=== PATIENT | female | born 1980 | race Caucasian/White ===

== ENCOUNTER 2021-08-08 19:02 | Emergency (ER) | payer OTHER ==
[2021-08-08] MEDS ORDERED: LORazepam 2 MG/ML VIAL ONE ×2 (20:22→22:49)
[2021-08-08 20:30] LABS: Absolute Lymphocytes (CBC) 1.5 K/uL (0.7-4.9); Basophils % 0.5 % (0-1.3); Hematocrit 41.4 % (36.0-45.0); Lymphocytes % 11.5 % (15.3-44.8); MPV 8.3 fL (7.6-11.3); RBC Red Blood Cell Count 4.37 M/uL (3.86-4.86)
[2021-08-08 20:39] LABS: Protime INR 1.03
[2021-08-08 20:53] LABS: ALT/SGPT 18 U/L (12-78); AST/SGOT 16 U/L (15-37); Albumin 4.5 g/dL (3.4-5.0); Alkaline Phosphatase 70 U/L (45-117); BUN Blood Urea Nitrogen 9 mg/dL (7-18); Bicarbonate 28 mmol/L (21-32); Bilirubin Direct 0.2 mg/dL (0-0.2); Bilirubin Total 0.9 mg/dL (0.2-1.0); Glucose Level 94 mg/dL (74-106); Potassium 3.9 mmol/L (3.5-5.1); Protein, Total 8.4 g/dL (6.4-8.2); Sodium Level 140 mmol/L (136-145)
[2021-08-08 21:46] LABS: Lithium 1.2 mmol/L (0.6-1.2)
[2021-08-08 21:57] LABS: Salicylates Level < 1.7 mg/dL (2.8-20)
[2021-08-08 22:35] LABS: Urine Blood Trace-intact (Negative); Urine Glucose Negative (Negative); Urine Protein Negative (Negative)
--- NOTE | 2021-08-08 22:45 | EDPHYS ---
Physician Documentation [facility] Name: Alma An Age: 41 yrs Sex: Female : 1980 Arrival Date: 08/08/2021 Time: 19:25 Bed 26 Private MD: ED Physician Junior Benavides HPI: 08/08 20:19 This 41 yrs old Female presents to ER via Ambulatory with complaints of varnisher Problem, bipolar. 20:19 The patient presents to the emergency department with Manic. Onset: The rn symptoms/episode began/occurred 1 week(s) ago. Associated signs and symptoms: Pertinent negatives: abdominal pain, chest pain, chills, delusions, fever, hallucinations, headache, homicidal ideation, night sweats, paranoia, shortness of breath, suicide ideation, vomiting. Severity of symptoms: At their worst the symptoms were moderate in the emergency department the symptoms are unchanged. The patient has experienced similar episodes in the past. The patient has been recently seen by a physician:. Family member states for the last week or so patient has been manic. Is taking medications as prescribed. Was seen last week by psychiatry and Wellbutrin added. Patient has been on Wellbutrin before and tolerated well. [place] dose was actually decreased. Family member states not sleeping, pressured speech, agitation. Patient denies any medical acute problems. Denies fever/cough/vomiting/diarrhea/rashes. No difficulty walking. No vision changes. No focal neurological problems.. BOAT HOP: 19:30 LMP 08/02/2021 vg1 Historical: - Allergies: 19:28 PENICILLINS; vg1 19:28 Aspirin; vg1 - Home Meds: 19:28 quetiapine oral [Active]; [place] Carbonate Oral [Active]; lamotrigine oral [Active]; vg1 19:30 Arbutin [Active]; vg1 - PMHx: 19:28 Bipolar disorder; vg1 - PSHx: 19:28 None; vg1 - Immunization history:: Adult Immunizations up to date, Client reports receiving the 2nd dose of the Covid vaccine. - Social history:: Smoking status: Patient denies any tobacco usage or history of. - Family history:: not pertinent. - Hospitalizations: : No recent hospitalization is reported. ROS: 20:19 Constitutional: Negative for fever, chills, and weight loss, Eyes: Negative for injury, rn pain, redness, and discharge, Neck: Negative for injury, pain, and swelling, Cardiovascular: Negative for chest pain, palpitations, and edema, Respiratory: Negative for shortness of breath, cough, wheezing, and pleuritic chest pain, Abdomen/GI: Negative for abdominal pain, nausea, vomiting, diarrhea, and constipation, Back: Negative for injury and pain, MS/Extremity: Negative for injury and deformity, Skin: Negative for injury, rash, and discoloration, Neuro: Negative for headache, weakness, numbness, tingling, and seizure, Psych: Negative for suicide ideation, homicidal ideation, and hallucinations. Exam: 20:19 Constitutional: This is a well developed, well nourished patient who is awake, alert, rn and in no acute distress. Sitting in bed with legs crossed. Head/Face: Normocephalic, atraumatic. Eyes: Periorbital areas with no swelling, redness, or edema. ENT: Mucous membranes moist. Neck: Trachea midline, no thyromegaly or masses palpated, and no cervical lymphadenopathy. Supple, full range of motion without nuchal rigidity, or vertebral point tenderness. No Meningismus. Cardiovascular: Regular rate and rhythm. No pulse deficits. Respiratory: No increased work of breathing, no retractions or nasal flaring. Abdomen/GI: Soft, non-tender Skin: Warm, dry, no rashes MS/ Extremity: Pulses equal, no cyanosis. Neurovascular intact. Full, normal range of motion. Equal circumference. Neuro: Awake and alert, GCS 15, oriented to person, place, time, and situation. Cranial nerves II-XII grossly intact. Motor strength 5/5 in all extremities. Sensory grossly intact. Cerebellar exam normal. Normal gait. Mild bilateral upper extremity tremor. No inducible clonus. No hyperreflexia. Psych: Awake, alert. Pressured speech but easy to understand and easily redirectable. 20:57 ECG was reviewed by the Attending Physician. rn Vital Signs: 19:26 BP 136 / 88; Pulse 92; Resp 16; Temp 98.4; Pulse Ox 98% ; Weight 58.97 kg; Height 5 ft. vg1 1 in. (154.94 cm); Pain 0/10; 19:42 BP 127 / 82; Pulse 96; Resp 18; Pulse Ox 96% ; Pain 0/10; ad1 20:15 BP 118 / 70; Pulse 90; Resp 16; Pulse Ox 100% ; Pain 0/10; ad1 21:15 BP 94 / 76; Pulse 93; Resp 14; Pulse Ox 100% ; Pain 0/10; ad1 22:00 BP 121 / 80; Pulse 87; Resp 16; Pulse Ox 100% ; Pain 0/10; ad1 22:45 BP 119 / 83; Pulse 91; Resp 16; Pulse Ox 100% ; Pain 0/10; ad1 19:26 Body Mass Index 24.56 (58.97 kg, 154.94 cm) vg1 MDM: 19:35 Patient medically screened. rn 22:41 Differential diagnosis: Bipolar disorder, manic episode, dehydration, change in um rn dosages. Data reviewed: vital signs, nurses notes, lab test result(s), EKG, and as a result, I will discharge patient. Data interpreted: media monitor: rate is 93 beats/min, rhythm is normal sinus rhythm, regular, with no ectopy, Interpretation: normal rate, normal rhythm, Pulse oximetry: on room air is 100 %. Interpretation: normal. Counseling: I had a detailed discussion with the patient and/or guardian regarding: the historical points, exam findings, and any diagnostic results supporting the discharge/admit diagnosis, lab results, the need for outpatient follow up, to return to the emergency department if symptoms worsen or persist or if there are any questions or concerns that arise at home. Response to treatment: the patient's symptoms have mildly improved after treatment, and as a result, I will discharge patient. Special discussion: Based on the history and exam findings, there is no indication for further emergent testing or inpatient evaluation. I discussed with the patient/guardian the need to see the psychiatrist for further evaluation of the symptoms. ED course: Patient without any acute findings in blood work or urine. Worsening symptoms of bipolar and manic episode possibly due to decreased lithium dose recently or could be adverse effect of recent Wellbutrin addition. No signs of serotonin syndrome at this time. Stable vital signs. Offered patient and family member transfer for psychiatric evaluation to inpatient facility which they declined. Will give Ativan to help her rest tonight and perhaps better sleep will improve her symptoms. Patient is alert and oriented and follows all commands here, no signs of agitation here, no suicidal or homicidal ideations, no hallucinations. Will discharge home and family member plans on calling psychiatrist in the morning or first thing on Wednesday. Family member states has dealt with this for a long time and is not new was just a little more agitated than normal today.. 22:45 ED course: [place] level within range.. rn 08/08 19:46 Order name: Acetaminophen; Complete Time: 20:57 rn 08/08 19:46 Order name: Basic Metabolic Panel; Complete Time: 20:57 rn 08/08 19:46 Order name: CBC with Diff; Complete Time: 20:57 rn 08/08 19:46 Order name: ETOH Level; Complete Time: 22:31 rn 08/08 19:46 Order name: Hepatic Function; Complete Time: 20:57 rn 08/08 19:46 Order name: PT-INR; Complete Time: 20:57 rn 08/08 19:46 Order name: Ptt, Activated; Complete Time: 20:57 rn 08/08 19:46 Order name: Salicylate; Complete Time: 22:31 rn 08/08 19:46 Order name: Urine Drug Screen; Complete Time: 22:55 rn 08/08 19:46 Order name: [place]; Complete Time: 22:31 rn 08/08 22:35 Order name: Urine --Ancillary (enter results); Complete Time: 22:45 tt3 08/08 22:35 Order name: Urine Dipstick-Ancillary; Complete Time: 22:40 EDMS 08/08 19:46 Order name: EKG; Complete Time: 19:47 rn 08/08 19:46 Order name: EKG - Nurse/Tech; Complete Time: 21:04 rn 08/08 19:46 Order name: IV Saline Lock; Complete Time: 20:20 rn 08/08 19:46 Order name: Labs collected and sent; Complete Time: 20:20 rn 08/08 19:46 Order name: Urine Dipstick-Ancillary (obtain specimen); Complete Time: 22:35 rn 08/08 19:46 Order name: Urine Test (obtain specimen); Complete Time: 22:35 rn EC:57 Rate is 89 beats/min. Rhythm is regular. QRS [place] is Normal. [place] interval is normal. QRS rn interval is normal. QT interval is normal. No Q waves. T waves are Normal. No ST changes noted. Clinical impression: Normal ECG. Interpreted by me. Reviewed by me. Administered Medications: 21:03 Drug: Ativan (LORazepam) 1 mg Route: IVP; Site: right hand; fu 21:33 Follow up: Response: No adverse reaction fu 23:26 Follow up: Response: No adverse reaction ad1 22:54 Drug: Ativan (LORazepam) 1 mg Route: IVP; Site: right antecubital; ad1 23:27 Follow up: Response: No adverse reaction ad1 Disposition Summary: 08/08/21 22:44 Discharge Ordered Location: Home rn Problem: new rn Symptoms: have improved rn Condition: Stable rn Diagnosis - Bipolar disorder, current episode manic without psychotic features, moderate rn Followup: rn - With: Private Physician - When: As needed - Reason: Recheck today's complaints, Re-evaluation by your physician Discharge Instructions: - Discharge Summary Sheet rn - Barbie rn - Managing Bipolar Disorder rn Forms: - Medication Reconciliation Form rn - Thank You Letter rn - Antibiotic rn faculty - Prescription Opioid Use rn Signatures: Dispatcher [employer] EDMS Junior Benavides MD MD rn DelToro, Anna RN RN ad1 Glen Hauser, RN Asha Laurent, RN RN vg1 Corrections: (The following items were deleted from the chart) 20:24 20:19 Constitutional: This is a well developed, well nourished patient who is awake, rn alert, and in no acute distress. Sitting in bed with legs crossed. Head/Face: Normocephalic, atraumatic. Eyes: Periorbital areas with no swelling, redness, or edema. ENT: Mucous membranes moist. Neck: Trachea midline, no thyromegaly or masses palpated, and no cervical lymphadenopathy. Supple, full range of motion without nuchal rigidity, or vertebral point tenderness. No Meningismus. Cardiovascular: Regular rate and rhythm. No pulse deficits. Respiratory: No increased work of breathing, no retractions or nasal flaring. Abdomen/GI: Soft, non-tender Skin: Warm, dry, no rashes MS/ Extremity: Pulses equal, no cyanosis. Neurovascular intact. Full, normal range of motion. Equal circumference. Neuro: Awake and alert, GCS 15, oriented to person, place, time, and situation. Cranial nerves II-XII grossly intact. Motor strength 5/5 in all extremities. Sensory grossly intact. Cerebellar exam normal. Normal gait. Mild bilateral upper extremity tremor. No inducible clonus. No hyperreflexia. rn
--- NOTE | 2021-08-08 22:45 | ER ---
Nurse's Notes [facility] Name: Alma An Age: 41 yrs Sex: Female : 1980 Arrival Date: 08/08/2021 Time: 19:25 Bed 26 Private MD: Diagnosis: Bipolar disorder, current episode manic without psychotic features, moderate Presentation: 08/08 19:26 Chief complaint: Parent and/or Guardian states: 'My daughter has been manic since vg1 Wednesday08/04/21 and today her speech has become slurred. She's having trouble getting her words out.' Pt has not been able to sleep for about 3 nights. Pt denies SI. Coronavirus screen: Vaccine status: Patient reports receiving the 2nd dose of the covid vaccine. Client denies travel out of the [place] in the last 14 days. Ebola Screen: Patient negative for fever greater than or equal to 101.5 degrees Fahrenheit, and additional compatible Ebola Virus Disease symptoms. Initial Sepsis Screen: Does the patient meet any 2 criteria? No. Patient's initial sepsis screen is negative. Does the patient have a suspected source of infection? No. Patient's initial sepsis screen is negative. Risk Assessment: Do you want to hurt yourself or someone else? Patient reports no desire to harm self or others. Onset of symptoms was August 04, 2021. 19:26 Method Of Arrival: Ambulatory vg1 19:26 Acuity: MERVIN 3 vg1 Triage Assessment: 19:30 General: Appears in no apparent distress. uncomfortable, Behavior is cooperative, vg1 anxious. Pain: Denies pain. 19:30 Neuro: Level of Consciousness is awake, alert, obeys commands, Oriented to person, vg1 place, time, situation, Special Needs Tutor are equal bilaterally Moves all extremities. Gait is steady, Speech is normal, Facial symmetry appears normal. CREEL CLERK: 19:30 LMP 08/02/2021 vg1 Historical: - Allergies: 19:28 PENICILLINS; vg1 19:28 Aspirin; vg1 - Home Meds: 19:28 quetiapine oral [Active]; [place] Carbonate Oral [Active]; lamotrigine oral [Active]; vg1 19:30 Arbutin [Active]; vg1 - PMHx: 19:28 Bipolar disorder; vg1 - PSHx: 19:28 None; vg1 - Immunization history:: Adult Immunizations up to date, Client reports receiving the 2nd dose of the Covid vaccine. - Social history:: Smoking status: Patient denies any tobacco usage or history of. - Family history:: not pertinent. - Hospitalizations: : No recent hospitalization is reported. Screenin:30 Abuse screen: Denies threats or abuse. Nutritional screening: No deficits noted. ad1 Tuberculosis screening: No symptoms or risk factors identified. Fall Risk IV access (20 points). Assessment: 21:37 General: Appears in no apparent distress. Behavior is cooperative, anxious, Reports ad1 manic since Wednesday. Mom reports slurred speech started today. Tremors noted to R hand/arm. Pain: Denies pain. 21:37 Neuro: Level of Consciousness is awake, alert, obeys commands, Oriented to person, ad1 place, time, situation, Appropriate for age Special Needs Tutor are equal bilaterally Moves all extremities. Gait is steady, Speech with difficulty getting words out, minimal slurring noted.. Facial symmetry appears normal. Cardiovascular: Heart tones S1 S2 Rhythm is sinus rhythm. Respiratory: No deficits noted. 22:00 Reassessment: Patient appears in no apparent distress at this time. No changes from ad1 previously documented assessment. Patient and/or family updated on plan of care and expected duration. Pain level reassessed. Patient is alert, oriented x 3, equal unlabored respirations, skin warm/dry/pink. 23:00 Reassessment: Patient appears in no apparent distress at this time. No changes from ad1 previously documented assessment. Patient and/or family updated on plan of care and expected duration. Pain level reassessed. Patient is alert, oriented x 3, equal unlabored respirations, skin warm/dry/pink. Psych: 23:31 Hasty Suicide Severity Screening: In the past month, have you wished you were ad1 or wished you could go to sleep and not wake up? Patient responds "No." "In the past month, have you actually had any thoughts of killing yourself?" Patient responds "no." "In your lifetime, have you ever done anything, started to do anything, or prepared to do anything to end your life?" Patient responds "no.". Subjective: Patient's mood is Delusions are. Objective: Patient is cooperative, Speech is rambling, Affect is. Interventions: Urine collected and sent for urine drug test. Safety Checks: Pt denies substance abuse. 23:32 Commitment:. ad1 Vital Signs: 19:26 BP 136 / 88; Pulse 92; Resp 16; Temp 98.4; Pulse Ox 98% ; Weight 58.97 kg; Height 5 ft. vg1 1 in. (154.94 cm); Pain 0/10; 19:42 BP 127 / 82; Pulse 96; Resp 18; Pulse Ox 96% ; Pain 0/10; ad1 20:15 BP 118 / 70; Pulse 90; Resp 16; Pulse Ox 100% ; Pain 0/10; ad1 21:15 BP 94 / 76; Pulse 93; Resp 14; Pulse Ox 100% ; Pain 0/10; ad1 22:00 BP 121 / 80; Pulse 87; Resp 16; Pulse Ox 100% ; Pain 0/10; ad1 22:45 BP 119 / 83; Pulse 91; Resp 16; Pulse Ox 100% ; Pain 0/10; ad1 19:26 Body Mass Index 24.56 (58.97 kg, 154.94 cm) vg1 ED Course: 19:25 Patient arrived in ED. vg1 19:28 Triage completed. vg1 19:30 Arm band placed on. vg1 19:35 Junior Benavides MD is Attending Physician. rn 20:20 Salicylate Sent. ad1 20:20 Ptt, Activated Sent. ad1 20:20 PT-INR Sent. ad1 20:20 Hepatic Function Sent. ad1 20:20 ETOH Level Sent. ad1 20:20 CBC with Diff Sent. ad1 20:20 Basic Metabolic Panel Sent. ad1 20:20 Acetaminophen Sent. ad1 20:20 [place] Sent. ad1 23:30 No provider procedures requiring assistance completed. IV discontinued, intact, ad1 bleeding controlled, No redness/swelling at site. Pressure dressing applied. 23:31 Patient has correct armband on for positive identification. Allergy band placed. Fall ad1 risk band placed. Bed in low position. Call light in reach. Administered Medications: 21:03 Drug: Ativan (LORazepam) 1 mg Route: IVP; Site: right hand; fu 21:33 Follow up: Response: No adverse reaction fu 23:26 Follow up: Response: No adverse reaction ad1 22:54 Drug: Ativan (LORazepam) 1 mg Route: IVP; Site: right antecubital; ad1 23:27 Follow up: Response: No adverse reaction ad1 Outcome: 22:44 Discharge ordered by . rn 23:29 Discharged to home ad1 23:29 Condition: stable 23:29 Condition: stable 23:29 Discharge instructions given to patient, family, Instructed on discharge instructions, follow up and referral plans. Demonstrated understanding of instructions, follow-up care. 23:32 Patient left the ED. ad1 Signatures: Junior Benavides MD MD rn DelToro, Anna, RN RN ad1 Glen Hauser, RN Asha Laurent, RN RN vg1 Corrections: (The following items were deleted from the chart) 23:25 23:00 BP 119 / 83; Pulse 91bpm; Resp 16bpm; Pulse Ox 100%; Pain 0/10; ad1 ad1
[2021-08-08 22:53] LABS: Barbiturates NEGATIVE (NEGATIVE); Benzodiazepines NEGATIVE (NEGATIVE); Cocaine NEGATIVE (NEGATIVE); METHAMPHETAM NEGATIVE (NEGATIVE); Methadone NEGATIVE (NEGATIVE); Opiates NEGATIVE (NEGATIVE); Phencyclidine NEGATIVE (NEGATIVE); THC Cannibis NEGATIVE (NEGATIVE)
[2021-08-08 23:47] VITALS: TEMP 98.4
[2021-08-08 23:50] VITALS: O2SAT 100
[2021-08-08 23:55] VITALS: BP 119/83
--- NOTE | 2021-08-11 18:32 | EKG ---
Test Date: 2021-08-08 Test Time: 20:28:32 Interlocking Tower Operator: TRENA MEASUREMENT RESULTS: Intervals: Rate: 89 [place]: 154 QRSD: 86 QT: 338 QTc: 411 [place]: P: 65 [place]: 154 QRS: 58 T: 38 INTERPRETIVE STATEMENTS: Normal sinus rhythm Normal ECG Compared to ECG 08/08/2021 20:27:39 No significant changes Electronically Signed On 08-11-21 18:24:23 SALES SUPPORT ADVISOR by Stefano Aceves
--- NOTE | 2021-08-11 18:32 | EKG ---
Test Date: 2021-08-08 Test Time: 20:27:39 Telecommunications Field Technician: TRENA MEASUREMENT RESULTS: Intervals: Rate: 95 TN: 146 QRSD: 82 QT: 364 QTc: 457 [place]: P: 72 TN: 146 QRS: 58 T: 51 INTERPRETIVE STATEMENTS: Normal sinus rhythm Normal ECG No previous ECG available for comparison Electronically Signed On 08-11-21 18:24:23 FASHION COORDINATOR by Stefano Aceves
--- OUTSIDE RECORDS SUMMARY | 2021-08-16 13:32 | XMS REPORT | Continuity of Care Document ---
:1980 Author Organization [facility] t Address [address] [place] [address] Care Team Providers Name Role Phone Shey Perez MD Primary Care Physician EADE Attending Clinician Unavailable Rebecca Perez MD Attending Clinician Lab, - Db Attending Clinician Unavailable Doctor Unassigned, Name Attending Clinician Unavailable Payers Payer Name Policy Type Policy Number Effective Date Expiration Date S ource Problems Condition Condition Condition Status Onset Resolution Last Treating Co mments Source Name Details Category Date Date Treatment Clinician Date Bipolar II Bipolar II Disease Active 2020-10 U nivers disorder disorder 0-25 ity of 00:00: Medical Branch Insomnia, Insomnia, Disease Active 2020-10 Uni vers unspecifie unspecifie 0-25 it y of d type d type 00:00: Medical Branch Social Social Disease Active 2020-10 Univers anxiety anxiety 0-25 ity of disorder disorder 00:00: Medical Branch Physical Physical Disease Active Unive rs therapy therapy 8-06 [place] [facility] x[place] Branch Cervical Cervical Disease Active Unive rs muscle muscle 7-29 ity of pain pain 00:00: Medical Branch Allergic Allergic Disease Active Overview: Un lex rhinitis rhinitis 4-12 Formattin ity of 00:00: g of this note Medical might be Branch different from the original. ICD10 Diagnosis Term Scheme Technician Utility Allergies, Adverse Reactions, Alerts Allergy Allergy Status Severity Reaction(s) Onset Inactive Treating Comm ents Source Name Type Date Date Clinician Aspirin Propensi Active Hives Univers ty to 412 ity of adverse 00:00: [place] reaction 00 Medical s Branch Penicill Propensi Active Unknown - Uni vers ins ty to See comments 01-13 ity of adverse 00:00: [place] reaction 00 Medical s Branch Family History Family Member Diagnosis Comments Start Date Stop Date Source Natural father Thyroid [facility] Natural mother Thyroid [facility] Paternal [facility] Social History Social Habit Start Date Stop Date Quantity Comments Source Exposure to Not sure [facility] SARS-CoV-2 [facility] (event) Branch Alcohol intake 2021-08-11 2021-08-11 Current [facility] 00:00:00 00:00:00 non-drinker of [facility] alcohol [place] (finding) Tobacco use and 2013-01-13 2013-01-13 Never used Universit y of exposure 00:00:00 00:00:00 [facility] Sex [birth year] Universit y of 00:00:00 00:00:00 [facility] Smoking Status Start Date Stop Date Source Never smoker [facility] Medications Ordered Filled Start Stop Current Ordering Indication Dosage Frequency Signature Comments Components Source Medication Medication Date Date Medication? Clinician (SIG) Name Name QUEtiapine 2020-10 Yes [id number] 100mg Take 1 Univers 100 mg 1-08 tablet by ity of tablet 00:00: mouth at [place] 00 bedtime. Medical Branch Lamotrigine 2020-10 Yes [id number] 200mg Take 1 Univers 200 mg 0-25 tablet by ity of tablet 00:00: mouth 2 [place] 00 (two) Medical times Branch daily. lithium 2020-10- Yes [id number] 600mg Take 2 Un lex carbonate 0-25 04-24 tablets by ity of CR 300 mg 00:00: 04:59 [place] 2 [place] SR tablet 00 :00 (two) Medical times Branch daily for 180 days. QUEtiapine 2020-10- No [id number] 25mg Take 1 Univers 25 mg 0-25 -08 tablet by ity of tablet 00:00: 00:00 mouth at [place] 00 :00 bedtime as Medical needed for Branch Insomnia for up to 90 days. buPROPion 2020-10- No [id number] 100mg Take 1 Univers SR 100 mg 0-25 11-08 tablet by ity of SR tablet 00:00: 00:00 mouth [place] 00 :00 every Medical morning. Branch traZODone Yes 50mg 50 mg. Univer s 50 mg 5-04 ity of tablet 00:00: [place] Medical [facility] traZODone 0 Yes 50mg 50 mg. Univer s 50 mg 5-04 ity of tablet 00:00: [place] [facility] traZODone 2020- No 50mg 50 mg. Unive rs 50 mg 5-04 10-25 ity of tablet 00:00: 00:00 [place] 00 : Medical Branch FLUoxetine Yes 10mg Take 10 mg U nivers 10 mg 4-11 by mouth ity of tablet 00:00: daily. Medical Branch FLUoxetine Yes 10mg Take 10 mg U nivers 10 mg 4-11 by mouth ity of tablet 00:00: daily. [place] [facility] FLUoxetine Yes 10mg Take 10 mg U nivers 10 mg 4-11 by mouth ity of tablet 00:00: daily. [place] Medical Branch ondansetron 2019- Yes [id number] 4mg Take 1 Univers 4 mg 0-02 tablet by ity of disintegrat 00:00: mouth [place] ing tablet 00 every 8 Medica l (eight) Branch hours as needed for Nausea and Vomiting (N/V). ondansetron 2019- Yes Nausea and 4mg Take 1 Univers 4 mg 0-02 vomiting, tablet by ity o f disintegrat 00:00: intractabil mouth [place] ing tablet 00 ity of every 8 Medi xin vomiting (eight) Branch not hours as specified, needed for unspecified Nausea and vomiting Vomiting type (N/V). ondansetron 2020-1 Yes Nausea and 4mg Take 1 Univers 4 mg 0-02 vomiting, tablet by ity o f disintegrat 00:00: intractabil mouth [place] ing tablet 00 ity of every 8 Medi xin vomiting (eight) Branch not hours as specified, needed for unspecified Nausea and vomiting Vomiting type (N/V). lithium 2020-0 Yes 450mg Take 450 Unive rs carbonate 9-23 mg by ity of CR 450 mg 00:00: mouth. 1 q [place] SR tablet 00 AM and 2 q Medi xin hs Branch lithium 2019-0 Yes 450mg Take 450 Unive rs carbonate 9-23 mg by ity of CR 450 mg 00:00: mouth. 1 q [place] tablet 00 AM and 2 q Medi xin hs Branch lithium 0 2020- No 450mg Take 450 Univ ers carbonate 9-23 10-25 mg by ity of CR 450 mg 00:00: 00:00 mouth. 1 q [place] SR tablet 00 :00 AM and 2 q Medi xin hs Branch QUEtiapine 2019- Yes TK 1 T PO Un lex 25 mg 9-22 BID AND 2 ity of tablet 00:00: TS HS. [place] [facility] QUEtiapine Yes TK 1 T PO Un lex 25 mg 9-22 BID AND 2 ity of tablet 00:00: TS HS. [place] [facility] QUEtiapine 2020- No TK 1 T PO U nivers 25 mg 9-22 10-25 BID AND 2 ity of tablet 00:00: 00:00 TS HS. [place] 00 : [facility] fluticasone Yes 2{spray Use 2 Un lex 50 2-05 } Sprays in ity of mcg/actuati 00:00: each [place] on nasal 00 nostril Medical spray daily. [place] fluticasone Yes 2{spray Use 2 Un lex 50 2-05 } Sprays in ity of mcg/actuati 00:00: each [place] on nasal 00 nostril Medical spray daily. Branch fluticasone Yes 2{spray Use 2 Un lex 50 2-05 } Sprays in ity of mcg/actuati 00:00: each [place] on nasal 00 nostril Medical spray daily. [place] lamoTRIgine Yes Neck pain 200mg Take 200 Univers (LAMICTAL) 5-29 mg by ity of 200 mg 00:00: mouth BID. [place] tablet [facility] lamoTRIgine Yes Neck pain 200mg Take 200 Univers (LAMICTAL) 5-29 mg by ity of 200 mg 00:00: mouth BID. [place] tablet [facility] lamoTRIgine 2020- No [id number] 200mg Take 200 Univers (LAMICTAL) 5-29 10-25 mg by ity of 200 mg 00:00: 00:00 [place] tablet [place] :00 [facility] Immunizations Ordered Filled Immunization Date Status Comments [facility] e Immunization Name Name SARS-COV-2 COVID-19 2020-12-21 Completed Unive rsity of PFIZER VACCINE 00:00:00 [facility] SARS-COV-2 COVID-19 2020-12-21 Completed Unive rsity of PFIZER VACCINE 00:00:00 [facility] SARS-COV-2 COVID-19 2020-12-21 Completed Unive rsity of PFIZER VACCINE 00:00:00 [facility] SARS-COV-2 COVID-19 2020-11-30 Completed Unive rsity of PFIZER VACCINE 00:00:00 [facility] SARS-COV-2 COVID-19 2020-11-30 Completed Unive rsity of PFIZER VACCINE 00:00:00 [facility] SARS-COV-2 COVID-19 2020-11-30 Completed Unive rsity of PFIZER VACCINE 00:00:00 [facility] Influenza Virus 2018-09-30 Completed Universit y of Vaccine 00:00:00 [facility] Influenza Virus 2018-09-30 Completed Universit y of Vaccine 00:00:00 [facility] Influenza Virus 2018-09-30 Completed [facility] University 00:00:00 [facility] TDAP 2017-06-03 Completed University 00:00:00 [facility] TDAP 2017-06-03 Completed [place] of 00:00:00 [facility] Vital Signs Vital Name Observation Time Observation Value Comments Source Systolic blood 2021-02-06 20:15:00 118 mm[Hg] Univer sity of pressure [facility] Diastolic blood 2021-02-06 20:15:00 72 mm[Hg] Unive rsity of pressure [facility] Heart rate 2021-02-06 20:15:00 93 /min [facility] Body temperature 2021-02-06 20:15:00 36.28 Alina Univ ersity of [facility] Respiratory rate 2021-02-06 20:15:00 16 /min [facility] Body height 2021-02-06 20:15:00 156 cm Universi ty of [facility] Body weight 2021-02-06 20:15:00 62.285 kg Universi ty [facility] BMI 2021-02-06 20:15:00 25.61 kg/m2 Universi [facility] Oxygen saturation in 2021-02-06 20:15:00 98 /min University of Arterial blood by [facility] Pulse oximetry Branch Systolic blood 2021-08-11 18:59:00 127 mm[Hg] [facility] Diastolic blood 2021-08-11 18:59:00 86 [facility]Hg[facility] 2021-08-11 18:59:00 98 /min [facility] Respiratory rate 2021-08-11 18:58:00 18 /min [facility] Body height 2021-08-11 18:58:00 154.9 cm Universi ty [facility] Body weight 2021-08-11 18:58:00 60.238 kg Universi [facility] BMI 2021-08-11 18:58:00 25.09 kg/m2 [facility] Body temperature 2021-02-06 20:15:00 36.28 Alina [facility] Oxygen saturation in 2021-02-06 20:15:00 98 /min [facility] Arterial blood by [facility] Pulse oximetry [place] Procedures Procedure Date / Time Performing Clinician Source Performed TEST, URINE 2021-08-04 15:26:00 Paola Steven [facility] CBC WITH DIFF 2021-08-04 15:16:00 [facility] COMP. METABOLIC PANEL 2021-08-04 15:16:00 Paola Steven [facility] ([id number]) [facility] GLYCOSYLATED HEMOGLOBIN 2021-08-04 15:16:00 Paola Steven [facility] (A1C) [facility] THYROID STIMULATING 2021-08-04 15:16:00 Paola Steven [facility] HORMONE [facility] Branch LITHIUM 2021-08-04 15:16:00 [place], Paola [facility] LIPID PANEL 2021-08-04 15:16:00 Paola Steven [facility] ([id number])(TOTAL Medical Branch CHOLESTEROL, TRIGLYCERIDES, HDL) CONSENT/REFUSAL FOR 2021-07-28 19:40:48 Doctor Unassigned, [facility] Name Medical Branch ASSIGNMENT OF BENEFITS 2021-07-28 19:40:35 Doctor Unassigned, No [facility] Name Medical Branch TELEMEDICINE VISIT 2021-07-28 05:01:00 Doctor Unassigned, No [facility] PAT[facility] CONSENT Name Medical Branch PSYCHIATRY CLINIC 2021-07-28 05:01:00 Doctor Unassigned, No [facility] PATIENT INFORMATION Name Medical [facility] ch CONSENT TO TREATMENT 2021-07-28 05:01:00 [facility] MEDICATION AUTHORIZATION FOR 2021-07-28 05:01:00 Doctor Unassigned, No Univ [facility] RELEASE OF PHI Name [facility] Branch POCT MOLECULAR STREP 2021-02-06 20:25:00 Shey Perez [facility] Plan of Care Planned Activity Planned Date Details Comments Source Future Scheduled 2027-06-03 DTaP,Tdap,and Td Univers ity [facility] Test 00:00:00 Vaccines (2 - Td) Medical Br anch [code = DTaP,Tdap,and Td Vaccines (2 - Td)] Future Scheduled 2027-06-03 DTaP,Tdap,and Td Univers ity [facility] Test 00:00:00 Vaccines (2 - Td) Medical Br anch [code = DTaP,Tdap,and Td Vaccines (2 - Td)] Future Scheduled 2022-02-06 Depression screening Uni [facility] [place] Test 00:00:00 (procedure) [code = Medical Branch 732432423] Future Scheduled 2022-02-06 Depression screening Uni [facility] [place] Test 00:00:00 (procedure) [code = Medical Branch 704221565] Future Scheduled 2021-06-04 INFLUENZA VACCINE Univer [facility]ity of [place] Test 00:00:00 (Season Ended) [code Medical Branch = INFLUENZA VACCINE (Season Ended)] Future Scheduled 2021-06-04 INFLUENZA VACCINE Univer [facility]ity of [place] Test 00:00:00 (Season Ended) [code Medical Branch = INFLUENZA VACCINE (Season Ended)] Future Scheduled 2021 Screening for University [facility] Test 00:00:00 malignant neoplasm Medical B ranch of breast (procedure) [code = 223016701] Future Scheduled 2021 Screening for [facility] [place] Test 00:00:00 malignant neoplasm Medical B ranch of breast (procedure) [code = 826806948] Future Scheduled 2002 Screening for University [facility] Test 00:00:00 malignant neoplasm Medical B [place] of cervix (procedure) [code = 373759763] Future Scheduled 2002 Screening for University [facility] Test 00:00:00 malignant neoplasm Medical B ranch of cervix (procedure) [code = 160107779] Future Scheduled 1999 Hepatitis C University [facility] Test 00:00:00 screening Medical Branch (procedure) [code = 967555117] Future Scheduled 1999 Hepatitis C University [facility] Test 00:00:00 screening Medical Branch (procedure) [code = 966438283] Future Scheduled 1982 [facility]IN[facility]:00 (1 of 2 - 2-dose Medical [facility] childhood series) [code = VARICELLA VACCINES (1 of 2 - 2-dose childhood series)] Future Scheduled 1982 VARICELLA VACCINES Unive rsity [place] Test 00:00:00 (1 of 2 - 2-dose Medical [facility] childhood series) [code = VARICELLA VACCINES (1 of 2 - 2-dose childhood series)] Future Scheduled COVID-19 ([facility]CULAR [facility] Test TESTING Medical Branch NUCLEIC ACID AMPLIFICATION) [code = 70749-8] Future Scheduled LITHIUM [code = [facility]i ty [facility] [place] Test 3719-2] Medical Branch Future Scheduled HCV ANTIBODY [code = Uni vers[facility] [place] Test 98534-8] Medical Branch Future Scheduled GLUCOSE [code = [facility]i ty [facility] [place] Test 1807] Medical Branch Future Scheduled COVID-19 (MOLECULAR Univ ersity [facility] Test TESTING Medical Branch NUCLEIC ACID AMPLIFICATION) [code = 84974-1] Future Scheduled LITHIUM [code = [facility]i ty [facility] [place] Test 3719-2] Medical Branch Future Scheduled HCV ANTIBODY [code = Uni versity of [place] Test 96295-4] Medical Branch Future Scheduled GLUCOSE [code = Universi ty of [place] Test 1807] Medical Branch Encounters Start End Encounter Admission Attending Care Care Encounter Source Date/Time Date/Time Type Type Clinicians Facility Department ID 2021-08-16 2021-08-16 Emergency [facility] [id number] [place] 00:00:00 00:00:00 EVANS Sanabria i 2021-08-11 2021-08-11 Travel 1.2.840.1 [id number] [facility] 00:00:00 00:00:00 64296.1.1 350.1.13.10 ity of 3.104.2.7 4.2.7.3.698 [place] .3.416858 084.8 Medica l .8 [place] 2021-08-04 2021-08-04 Telemarketer Supervisor Shey Perez 1.2.840.1 [id number] [facility] 09:10:25 09:15:07 [place] [address].1.1 ity of 3.104.2.7 [place] .3.541411 Medica l .8 [place] 2021-08-04 2021-08-04 Travel 1.2.840.1 [id number] [id number] Univers 00:00:00 00:00:00 43359.1.1 350.1.13.10 ity of 3.104.2.7 4.2.7.3.698 [place] .3.751531 084.8 Medica l .8 [place] 2021-07-28 2021-07-28 Orders Doctor 1.2.840.4 [id number] Univers 00:00:00 00:00:00 Only Unassigned, 48907.1.1 ity of [place] 3.104.2.7 [place] .3.232652 Medica l .8 Branch 2021-07-28 2021-07-28 Travel 1.2.840.1 [id number] [id number] [facility] 00:00:00 00:00:00 43667.1.1 350.1.13.10 ity of 3.104.2.7 4.2.7.3.698 [place] .3.454070 084.8 Medica l .8 Branch Results Test Description Test Time Test Comments Results Result Comments Source THYROID STIMULATING HORMONE 2021-08-04 20:18:25 Test Item Value Reference Range Interpretation Comme nts TSH (test code = 3526337155) See_Comment [Automated message] The system which generated this result transmitted ref erence range: 0.45 - 4.70 mIU/L. T he reference range was not used to interpret this result as anitha l/abnormal. Lab Interpretation (test code = Normal 20670-5) [facility]2021-08-04 19:58:14 Test Item Value Reference Range Interpretation Comments HGB A1C (test code = 4.6 % 4.0-5.7 4548-4) TIMOTHY (test code = TIMOTHY) Reference RangesNormal: <5.7%Prediabetes: 5.7 - 6.4%Diabetes: > 6.5% Lab Interpretation (test Normal code = 12585-8) [facility][id number])(TOTAL CHOLESTEROL, TRIGLYCERIDES, HDL)2021-08-04 19:56:02 Test Item Value Reference Range Interpretation Comments CHOL (test code = 165 mg/dL 120-200 5112846659) HDL (test code = 67 mg/dL >50 3968644622) HDLC RATIO (test code = See_Comment [Au tomated message] 2289557716) The system [employer] generated this result transmit jhoan reference range : <=4.5. The refe rence range was not u sed to interpret th is result as normal/abnormal . TRIG (test code = 65 mg/dL 30-170 2837570969) LDL CHOL (test code = 85 mg/dL See_Comment [Auto mated message] 51467-8) The system [employer] generated this result transmit jhoan reference range : <=160. The refe rence range was not u sed to interpret th is result as normal/abnormal . VLDL (test code = 13 mg/dL 5-60 8237618862) Lab Interpretation (test Normal code = 05837-6) [facility] ([id number])2021-08-04 19:55:21 Test Item Value Reference Range Interpretation Comments NA (test code = 137 mmol/L 135-145 8935345131) K (test code = 4.2 mmol/L 3.5-5.0 6320481068) CL (test code = 102 mmol/L 98-108 9996310156) CO2 TOTAL (test code 29 mmol/L 23-31 = 4286717662) AGAP (test code = 2-16 5521430531) BUN (test code = 9 mg/dL 7-23 7536992928) GLUCOSE (test code = 89 mg/dL 70-110 9927188415) CREATININE (test code 0.97 mg/dL 0.50-1.04 = 8950419174) TOTAL BILI (test code 1.0 mg/dL 0.1-1.1 = 8644624862) CALCIUM (test code = 9.8 mg/dL 8.6-10.6 3623304979) T PROTEIN (test code 8.0 g/dL 6.3-8.2 = 0407199498) ALBUMIN (test code = 4.7 g/dL 3.5-5.0 4059674230) ALK PHOS (test code = 58 U/L 34-122 7781195981) ALTv (test code = 9 U/L 5-35 1742-6) AST(SGOT) (test code 23 U/L 13-40 = 7341360102) eGFR (test code = mL/min/1.73m2 1709308922) TIMOTHY (test code = TIMOTHY) Association of Glomerular Filtration Rate (GFR) and Staging of Kidney Disease* + + +- +| GFR (mL/min/1.73 m2) ?| With Kidney Damage ?| ?Without Kidney Damage+ ------+ ----+ ------+| ?>90 ?| ?Stage one ?| ? Normal ?+ -+ + -+| ?60-89 ?| ?Stage two ?| ? Decreased GFR ? + + +- +| ?30-59 ?| ?Stage three ?| ? Stage three ? + + +- +| ?15-29 ?| ?Stage four ? | ? Stage four ?+ -+ + -+| ?<15 (or dialysis) ? ?| ?Stage five ? | ? Stage five ?+ -+ + -+ *Each stage assumes the associated GFR level has been in effect for at least three months. ?Stages 1 to 5, with or without kidney disease, indicate chronic kidney disease. Notes: Determination of stages one and two (with eGFR >59mL/min/1.73 m2) requires estimation of kidney damage for at least three months as defined by structural or functional abnormalities of the kidney, manifested by either:Pathological abnormalities or Markers of kidney damage (including abnormalities in the composition of the blood or urine or abnormalities in imaging tests). [facility] 19[facility]52[facility]38 Test Item Value Reference Range Interpretation Comments [place] (test code = 1.0 mmol/L 0.6-1.2 0869835768) TIMOTHY (test code = TIMOTHY) Toxic Range: ? Greater than 1.2 mmol/L Lab Interpretation (test Normal code = 18226-2) [facility] WITH [id number] 19:16:13 Test Item Value Reference Range Interpretation Comments WBC (test code = See_Comment [Automated 8690-2) message] The sy stem which generated this result transmitted reference range : 4.30 - 11.10 10*3/?L. The reference range was not used to interpret this result as normal/abnormal . RBC (test code = See_Comment [Automated 009-8) message] The sy stem which generated this result transmitted reference range : 3.93 - 5.25 10*6/?L. The reference range was not used to interpret this result as normal/abnormal . HGB (test code = 13.9 g/dL 11.6-15.0 718-7) HCT (test code = 44.1 % 35.7-45.2 4544-3) MCV (test code = 98.9 fL 80.6-95.5 H 787-2) MCH (test code = 31.2 pg 25.9-32.8 785-6) MCHC (test code = 31.5 g/dL 31.6-35.1 L 786-4) RDW-SD (test code = 45.6 fL 39.0-49.9 95681-4) RDW-CV (test code = 12.7 % 12.0-15.5 788-0) PLT (test code = See_Comment H [Automated 777-3) message] The sy stem which generated this result transmitted reference range : 166 - 358 10*3/ ?L. The reference r traci was not used to interpret this result as normal/abnormal . MPV (test code = 10.7 fL 9.5-12.9 46661-9) NRBC/100 WBC (test See_Comment [Automat ed code = 7769468786) message] The system which generated this result transmitted reference range : 0.0 - 10.0 /100 WBCs. The refer ence range was not u sed to interpret th is result as normal/abnormal . NRBC x10^3 (test code <0.01 See_Comment [Auto mated = 7086387617) message] The s ystem which generated this result transmitted reference range : 10*3/?L. The reference range was not used to interpret this result as normal/abnormal . GRAN MAT (NEUT) % 79.0 % (test code = 770-8) IMM GRAN % (test code 0.40 % = 3338787449) LYMPH % (test code = 13.3 % 736-9) MONO % (test code = 5.3 % 5905-5) EOS % (test code = 1.4 % 713-8) BASO % (test code = 0.6 % 706-2) GRAN MAT x10^3(ANC) 7.30 10*3/uL 1.88-7.09 H (test code = 0948193579) IMM GRAN x10^3 (test 0.04 10*3/uL 0.00-0.06 code = 6146329838) LYMPH x10^3 (test code 1.23 10*3/uL 1.32-3.29 L = 731-0) MONO x10^3 (test code 0.49 10*3/uL 0.33-0.92 = 742-7) EOS x10^3 (test code = 0.13 10*3/uL 0.03-0.39 711-2) BASO x10^3 (test code 0.06 10*3/uL 0.01-0.07 = 704-7) Lab Interpretation Abnormal (test code = 33105-7) [facility] MOLECULAR [id number] 20:33:11 Test Item Value Reference Range Interpretation Comments POCT Molecular Strep (test code = Negative Negative 04626-6) Lab Interpretation (test code = Normal 44638-5) [facility] MOLECULAR [id number] 20:33:11 Test Item Value Reference Range Interpretation Comments POCT Molecular Strep (test code = Negative Negative 56479-1) Lab Interpretation (test code = Normal 52942-2) [facility]"
== END 2021-08-08 23:32 | disposition home or self-care (01) ==
LOC: ER 19:02
DX: F31.12 Bipolar disorder, current episode manic without psychotic features, moderate (principal); Z88.0 Allergy status to penicillin; Z88.6 Allergy status to analgesic agent
CPT/HCPCS: 36415; 80048; 80076; 80178; 80307; 80320; 80329; 81003; 81025; 85025; 85610; 85730; 93005; 99284